=== PATIENT | male | born 1950 | race Caucasian/White ===

== ENCOUNTER 2018-04-18 09:00 | Outpatient (RCR) | payer OTHER, SELFPAY ==
--- NOTE | 2018-03-18 13:57 | HP.PTEVAL_ITS ---
Patient's Visit Information ELLIOTT CAO is a 67 year old M referred to Physical Therapy by [facility] with a diagnosis of LOW BACK PAIN. Date of Evaluation: 03/18/18 Physical Therapist: Christen Rose Visit Plan Frequency: 2x /Week Duration: 4 Weeks Plan: AQUATIC THERAPY FOR PAIN RELEIF, POSTURE CORRECTION/STRENGTHENING, INSTRUCTION IN APPROPRIATE BODY MECHANICS AND ACTIVITY MODIFICATIONS. DLS STARTING WITH A NEUTRAL SPINE PROGRESSING ROM TOLERATED. LENA LE ROM, STRETCHING AND STRENGTHENING. HEP INSTRUCTION. - Subjective Subjective: Work/Leisure: RETIRED X 15 YEARS. Disability: YES - 100%. Present symptoms: LOW BACK PAIN AND SEVERE LENA LE PAIN. PATIENT DENIES LENA LE NUMBNESS OR TINGLING. Present since: 20 YEARS BUT STARTING THIS SUMMER STARTED HAVING A LOT OF TROUBLE WALKING WITH INABILITY TO WALK IN DECEMBER OF 2017. Pain Scale: WORST 10/10, LEAST 8/10. Currently: 8/10. Commenced as a result of: JUST BECAUSE OF THE DISEASES THAT I HAVE. Symptoms at onset: BACK AND LEGS. Worse: SITTING FOR PROLONGED PERIODS AND AT NIGHT ARE THE WORST. PROLONGED STANDING STANDING, PROLONGED WALKING, LIFTING. COLD WEATHER AND THE RAIN. Better: BENDING FORWARD, BACKWARDS AND SIDEWAYS. WARMTH. Disturbed sleep: YES. Previous history/Previous treatment: 5 BACK OPERATIONS, NEUROSTIMULATOR PLACEMENT, PHYSICAL THERAPY. LAST BACK SURGERY WAS 2003 ON HIS SPINE. 2 SPINE SURGERIES AND 3 STIMULATOR SURGERIES. MANY ALANA'S WITH THE LAST ONE BEING MANY YEARS AGO UNTIL JAN 2018 AND IT HELPED BUT IT IS WEARING OFF. CONSIDERING ANOTHER SHOT IN APR 17 2018. ACCUPUNCTURE ABOUT 3 MONTHS AGO BUT DIDN'T HELP LOW BACK OR LEGS. Coughing/sneezing/straining: NEGATIVE. Gait: PATIENT REPORTS THAT SOMETIMES HE WALKS OK AND SOMETIMES HE STUMBLES. HE REPORTS HE HAS A WALKER AND CANE AND HE USES THEM WHEN HE HAS TO BUT HE DOESN'T LIKE TO. STATES HE HAD TO USE THEM IN DECEMBER BECAUSE HE COULDN'T WALK WITHOUT THEM. Difficulty initiating urinatin: NO. Accidents: PATIENT DENIES. Unexplained weight loss: NO. Imaging: PATIENT REPORTS HE WAS IN SEVERE PAIN IN DECEMBER AND THEY DID X-RAYS AND CAT SCAN OF HIS BACK REVEALING SEVERE SPINAL STENOSIS. PMH: IDDM, PARALYSIS OF SCIATIC NERVE, PARALYSIS OF ULNAR NERVE. PTSD. 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 NO CANCER, NO STROKE, NO HEART SURGERY. NO JOINT REPLACEMENTS. Recent major surgery: NO. PLOF (Prior Level of Function): PATIENT REPORTS HE USE TO WALK AT [facility] UNTIL ABOUT LAST YEAR. PATIENT REPORTS HE IS A BIG WALKER AND THAT IS THE MAIN CHANGE IN HIS FUNCTION. - Objective Sitting/Standing Posture: POOR. Lordosis: REDUCED. Lateral shift: NO. Relevant shift: N/A. Active Correction of posture: BETTER. Other Observations: INDEP ANTALGIC GAIT INTO PT WITHOUT ANY ASSISTIVE DEVICES WITH INCREASED TRUNK FLEXION BUT NO LOB. PATIENT UNABLE TO TRANSFER SIT TO STAND WITHOUT UE ASSIST. PATIENT WITH INCREASED EXCESSIVE TRUNK FLEXION UPON RISING FROM SITTING AND INITIATING GAIT. Motor deficit: LENA LE STRENGTH 4/5 WITH MMT'ING AND APPEARS PAIN LIMITED. Sensory deficit: PATIENT DENIES DECREASED OR INCREASED OR ASSYMETRICAL LIGHT TOUCH SENSATION WITH LENA LE TESTING. ROM deficit: VERY TIGHT LENA HIP FLEXORS, HS AND GASTROC SOLEUS COMPLEX'S. Reflexes: NT. Dural Signs: NEGATIVE LENA LE'S. Lumbar mvmt loss: flex - MIN. ext - ELIZABETH. R SG - ELIZABETH. L SG - ELIZABETH. Core strength: POOR. Palpation: PATIENT IS VERY TENDER WITH LIGHT PALPATION OF ENTIRE LUMBOSACRAL REGION. - Goals Goal 1:: DECREASE C/O LOW BACK AND LENA LE PAIN Goal Time Frame: 4-6 Weeks Goal 2:: IMPROVE SITTING, STANDING, WALKING, LIFTING, ADL AND SLEEP FUNCTION Goal Time Frame: 4-6 Weeks Goal 3:: INSTRUCT IN PROPHYLAXIS Goal Time Frame: 4-6 Weeks - Rehabilitation Potential Rehabilitation Potential: Fair - Anticipated Interventions Patient/Client Instruction: Educate patient on: Condition, Plan of Care, Risk Factors, Benefits of Fitness Program For the Purpose of:: To improve self management Therapeutic Exercise to Include: Strength training, Body mechanics, Postural training, Flexibilty training, Gait and locomotor training, In an aquatic setting, Active ROM, Dynamic Lumbar Stabilization For the Purpose of:: To decrease pain, To decrease swelling/inflammation, To increase ROM, To improve muscle performance and motor function, To increase tolerance to activity/condition/position, To improve ability of physical actions for home/community/work/leisure, To improve gait and locomotor functions Thank you for the opportunity to evaluate your patient. For Medicare and Medicare HMO plans, please review the plan of care and approve it. It will need to be FAXED BACK to us at [phone] for Medicare purposes. Please let me know if there are questions or concerns regarding this plan of care. Physician Signature:____ Date:
--- NOTE | 2018-04-18 09:47 | HP.PTDCSUM_ITS ---
HP - PT D/C Summary It has been my pleasure to treat ELLIOTT CAO under orders from [facility], for the diagnosis of LOW BACK PAIN for a total of 9 visit(s). Discharge Date: 04/18/18 Please see the following information for a summary of their discharge status. - Subjective Subjective: PATIENT REPORTS HIS BACK AND LEG PAIN NEVER GO BELOW 8/10. PATIENT REPORTS HE HAS LEARNED A LOT ABOUT HIS POSTURE IN PHYSICAL THERAPY. HE STATES HE LOVES TO EXERCISE AND HE WILL WORK ON THESE THINGS WITH THE HOPE THAT HE WILL EVENTUALLY GET SOME BENEFIT BUT HE HAS NOT YET. - Pain bilat LB Pain Intensity (Out of 10): 8 bilat LE Pain Intensity (Out of 10): 8 - Objective Objective/Function: THERE ARE NO SIGNIFICANT CHANGES WITH TESTING THIS VISIT COMPARED TO INITIAL EVAL. NO SIGNIFICANT CHANGE IN OSWESTRY. PATIENT IS HOWEVER INDEP WITH A HEP THAT WE HOPE WITH TIME WILL BENEFIT HIM. HE IS NO WORSE. PATIENT REPORTS HE HAS 3 CANES HE CAN USE AT HOME BUT HE DOESN'T LIKE TO USE THEM BECAUSE HE DOESN'T WANT OTHER PEOPLE TO KNOW HE HAS PROBLEMS. THIS PHYSICAL THERAPIST RECOMMENDS CANE FOR SAFETY. HE LOST HIS BALANCE 2 TIMES DURING ASSESSMENT BUT ABLE TO REGAIN BALANCE INDEP'LY. HE IS ALSO DEMONSTRATING AND COMMUNICATING A GOOD UNDERSTANDING OF BETTER POSTURE CONTROL. - Goals Goal 1:: DECREASE C/O LOW BACK AND LENA LE PAIN Goal Progress: Not Progressing Goal 2:: IMPROVE SITTING, STANDING, WALKING, LIFTING, ADL AND SLEEP FUNCTION Goal Progress: Not Progressing Goal 3:: INSTRUCT IN PROPHYLAXIS Goal Progress: Not Progressing - Plan Plan: D/C DUE TO LACK OF PROGRESS. PATIENT AGREEABLE. - D/C Information If there are questions or concerns regarding this patient's physical therapy, please feel free to call me at [phone]. Thank you for the referral of this patient. Sincerely, Christen Wheatley
== END 2018-04-18 19:00 | disposition home or self-care (01) ==
LOC: PT 09:00
DX: M54.5 Low back pain (principal)
CPT/HCPCS: 97113; 97163; 97530